=== PATIENT | male | born 1995 | race Caucasian/White ===

== ENCOUNTER 2016-08-11 19:35 | Emergency (ER) | payer SELFPAY ==
[~2016-08-11] VITALS: Ht 167.6 cm; Wt 90.7 kg
[2016-08-11 19:40] VITALS: BP_SYST 129
[2016-08-11] MEDS ORDERED: NACL 0.9% 1,000 ML IV ONE (20:15)
[2016-08-11] MEDS ORDERED: fentaNYL CITRATE/PF 100 MCG/2 ML AMP IVP ONE ×2 (20:15→21:30)
[2016-08-11] MEDS ORDERED: ONDANSETRON HCL 4 MG/2 ML VIAL IVP ONE (20:15)
[2016-08-11] MEDS ORDERED: LORazepam 2 MG/ML VIAL (FOR ER USE) IVP ONE (21:30)
[2016-08-11 22:18] VITALS: BP_SYST 124
== END 2016-08-11 22:18 | disposition home or self-care (01) ==
LOC: SED 19:35
DX: M54.42 Lumbago with sciatica, left side (principal); M54.41 Lumbago with sciatica, right side; R03.0 Elevated blood-pressure reading, without diagnosis of hypertension
CPT/HCPCS: 72131; 96361; 96374; 96375; 96376; 99284; J2060; J2405; J3010; J7030

== ENCOUNTER 2016-08-17 02:55 | Emergency (ER) | payer SELFPAY ==
[~2016-08-17] VITALS: Ht 167.6 cm; Wt 89.8 kg
[2016-08-17 03:00] VITALS: BP 133/77; PULSE 69; RESP 15; TEMP 97.6; O2SAT 98
--- NOTE | 2016-08-17 03:06 | NUR ---
Patient to ER bed 6 to gown for evaluation. Side rails up. Report given to My RN.
--- NOTE | 2016-08-17 03:25 | NUR ---
ER at bedside examining patient.
--- NOTE | 2016-08-17 03:27 | NUR ---
Pt came from home, A&Ox4, c/o back pain 12/08. No N/V/D, chest pain or SOB noted. MD aware. Safety maintained. Continue to monitor.
[2016-08-17] MEDS ORDERED: KETOROLAC TROMETHAMINE 60 MG/2 ML VIAL IM ONE (04:00)
[2016-08-17 04:23] VITALS: BP 130/71; PULSE 74; RESP 15; TEMP 97.9; O2SAT 98
--- NOTE | 2016-08-17 04:23 | NUR ---
Patient given written and verbal discharge instructions and verbalizes understanding. ER MD Caputo discussed with patient the results and treatment provided. Patient in stable condition. ID arm band removed. IV catheter removed intact and dressing applied, no active bleeding. Rx of zofrabn, tylenol/codeine given. Patient educated on pain management and to follow up with PMD. Pain Scale 0/10. Opportunity for questions provided and answered.
== END 2016-08-17 04:23 | disposition home or self-care (01) ==
LOC: SED 02:55
DX: M54.41 Lumbago with sciatica, right side (principal)
CPT/HCPCS: 96372; 99283; J1885

== ENCOUNTER 2020-04-18 03:18 | Emergency (ER) | payer MEDICAID ==
[~2020-04-18] VITALS: Ht 167.6 cm; Wt 88.5 kg
[2020-04-18 03:30] VITALS: BP_SYST 144
[2020-04-18 04:12] VITALS: BP_SYST 138
== END 2020-04-18 04:12 | disposition home or self-care (01) ==
LOC: SED 03:18
DX: J45.909 Unspecified asthma, uncomplicated (principal); F41.9 Anxiety disorder, unspecified
CPT/HCPCS: 71045; 93005; 99283

== ENCOUNTER 2020-07-22 20:37 | Emergency (ER) | payer MEDICAID ==
[~2020-07-22] VITALS: Ht 160 cm; Wt 90.7 kg
[2020-07-22 20:43] VITALS: BP_SYST 161
[2020-07-22] MEDS ORDERED: KETOROLAC TROMETHAMINE 60 MG/2 ML VIAL IM ONE (21:15)
[2020-07-22] MEDS ORDERED: HYDR-3917 PO (21:34)
[2020-07-22] MEDS ORDERED: IBUP-1971 PO (21:34)
[2020-07-22] MEDS ORDERED: MORPHINE 4 MG INJ. 4 MG/ML VIAL IM ONE (21:45)
[2020-07-22 22:09] VITALS: BP_SYST 161
== END 2020-07-22 22:09 | disposition home or self-care (01) ==
LOC: SED 20:37
DX: S83.91XA Sprain of unspecified site of right knee, initial encounter (principal); X58.XXXA Exposure to other specified factors, initial encounter; Y93.66 Activity, soccer; Y92.89 Other specified places as the place of occurrence of the external cause; Y99.8 Other external cause status
CPT/HCPCS: 29505; 73564; 96372; 99284; J1885; J2270

== ENCOUNTER 2021-04-05 21:58 | Emergency (ER) | payer MEDICAID, SELFPAY ==
[~2021-04-05] VITALS: Ht 170.2 cm; Wt 90.7 kg
[~2021-04-05 21:58] MED LIST: HYDR-3917 PO; IBUP-1971 PO
[2021-04-05 22:40] VITALS: BP_SYST 151
--- NOTE | 2021-04-06 00:30 | NUR ---
Max denney in ED - 04/06/21 at 0648 by SDED[facility] NINA Peña at bedside examining patient.
--- NOTE | 2021-04-06 00:41 | NUR ---
ER in tent examining patient.
[2021-04-06] MEDS ORDERED: MORPHINE 4 MG INJ. 4 MG/ML VIAL IM ONE (01:00)
[2021-04-06] MEDS ORDERED: NACL 0.9% 1,000 ML IV ONE (01:00)
[2021-04-06] MEDS ORDERED: ONDANSETRON HCL 4 MG/2 ML VIAL IVP ONE (01:00)
[2021-04-06 02:39] LABS: CALCIUM 9.2 mg/dL (8.4-11.0); CREATININE 0.88 mg/dL (0.55-1.30); POTASSIUM 4.1 mmol/L (3.5-5.1)
[2021-04-06 02:45] LABS: ALBUMIN 4.3 g/dL (3.4-4.8); TOTAL BILIRUBIN 0.4 mg/dL (0.0-1.0)
[2021-04-06 02:47] LABS: BASOPHILS # (AUTO) 0.1 K/uL (0.0-0.2); BASOPHILS % (AUTO) 0.9 % (0.0-2.0); EOSINOPHILS # (AUTO) 0.2 K/uL (0.0-0.4); HEMATOCRIT 43.1 % (36-54); LYMPHOCYTES # (AUTO) 0.8 K/uL (1.0-5.5); LYMPHOCYTES % (AUTO) 9.7 % (20.5-51.5); MEAN CORPUSCULAR HEMOGLOBIN 29 pg (27-31); MEAN CORPUSCULAR HGB CONC 35 % (32-36); MEAN CORPUSCULAR VOLUME 84 fL (79.0-98.0); MONOCYTES # (AUTO) 1.2 K/uL (0.0-1.0); MONOCYTES % (AUTO) 14.5 % (1.7-9.3); NEUTROPHILS # (AUTO) 6.1 K/uL (1.8-7.7); NEUTROPHILS % (AUTO) 72.9 % (40.0-70.0); PLATELET COUNT (AUTO) 205 K/uL (130-430); RED BLOOD CELL COUNT(AUTO) 5.12 MIL/uL (4.2-6.2); RED CELL DISTRIBUTION WIDTH 13.4 % (9.0-15.0); WHITE BLOOD COUNT (AUTO) 8.3 K/uL (4.8-10.8)
--- NOTE | 2021-04-06 03:00 | NUR ---
PT BROUGHT TO ER ROOM 8
--- NOTE | 2021-04-06 03:30 | NUR ---
# 20 gauge angiocath placed to RAC. Use of asceptic technique. Opsite placed over site. Blood return noted. Flushed with 10 cc of normal saline. No evidence of infiltration noted. Patient tolerated well.
[2021-04-06] MEDS ORDERED: TRAM50TA PO (04:59)
[2021-04-06] MEDS ORDERED: AMOX-426 PO (04:59)
[2021-04-06] MEDS ORDERED: PRED20TA PO (04:59)
[2021-04-06] MEDS ORDERED: OXYM15MI9 NS (04:59)
[2021-04-06] MEDS ORDERED: AMOXICILLIN/CLAVULANATE POTASSIUM 875 MG TABLET PO ONE (05:00)
--- NOTE | 2021-04-06 05:15 | NUR ---
Patient given written and verbal discharge instructions and verbalizes understanding. ER MD discussed with patient the results and treatment provided. Patient in stable condition. ID arm band removed. IV catheter removed intact and dressing applied, no active bleeding. Rx of augmentin, afrin, prednisone, tramadol given. Patient educated on pain management and to follow up with PMD. Pain Scale 2/10. Opportunity for questions provided and answered. Medication side effect fact sheet provided.
[2021-04-06 05:17] VITALS: BP_SYST 151
== END 2021-04-06 05:15 | disposition home or self-care (01) ==
LOC: SED 21:58
DX: U07.1 COVID-19 (principal); J32.0 Chronic maxillary sinusitis; Z79.899 Other long term (current) drug therapy
CPT/HCPCS: 36415; 71045; 80053; 85025; 87420; 87426; 87804 ×2; 96361; 96372; 96374; 99284; J2270; J2405; J7030

== ENCOUNTER 2021-07-13 21:31 | Emergency (ER) | payer MEDICAID ==
[~2021-07-13] VITALS: Ht 167.6 cm; Wt 95.3 kg
[~2021-07-13 21:31] MED LIST changes: +AMOX-426 PO; +OXYM15MI9 NS; +PRED20TA PO; +TRAM50TA PO
[2021-07-13 21:40] VITALS: BP_SYST 141
[2021-07-13] MEDS ORDERED: IBUPROFEN 600 MG TABLET PO ONE (23:15)
[2021-07-13] MEDS ORDERED: HYDROcodone/ACETAMIN 5-325 MG TAB (NORCO/ VICODIN) PO ONE (23:15)
[2021-07-13] MEDS ORDERED: NAPR-686 PO (23:59)
[2021-07-13] MEDS ORDERED: HYDR-3917 PO (23:59)
[2021-07-14 00:10] VITALS: BP_SYST 136
== END 2021-07-14 00:10 | disposition home or self-care (01) ==
LOC: SED 21:31
DX: R07.89 Other chest pain (principal); J45.909 Unspecified asthma, uncomplicated
CPT/HCPCS: 71045; 93005; 99283